=== PATIENT | female | born 1975 | race Two or more races ===

== ENCOUNTER 2024-09-01 12:05 | Day surgery (SDC) | payer MEDICAID, SELFPAY ==
[2024-08-31 13:36] VITALS: BMI 33.6
--- NOTE | 2024-08-31 16:26 | ESHP_ITS ---
RE: JENNIFER WESTON : 1975 DATE OF ADMISSION: 09/01/2024 DATE OF SURGERY: 09/01/2024 HISTORY OF PRESENT ILLNESS: This patient is a 49-year-old female who speaks good Amharic. She is here for screening colonoscopy. The patient denies any history of rectal bleeding or colon cancer in the family. She has never had a colonoscopy. She has a history of hypertension and her past surgery consisted of 3 sections and 3 hernia repairs. The patient is working in an office. PHYSICAL EXAMINATION: General: Slightly obese female who is 5 feet 2 inches tall and weighing 189 pounds with BMI of 33.48. Vital Signs: Revealed a temperature of 98.1, pulse of 69, BP 159/84. HEENT: Examination of the head normal. Eyes, ears, nose, and throat were normal. Neck: Normal. Chest: Revealed good breath sounds on both sides. Breasts: Not examined. Abdomen: Showed surgical scars from the lower abdomen due to sections. Rectal: Deferred pending colonoscope. IMPRESSION: 1. Screening colonoscope. 2. Anemia. 3. Essential hypertension. COURSE OF ACTION: I advised the patient to undergo colonoscopy. Procedures were explained to her in detail including potential complications like bleeding and perforation of the colon, which will require surgery. She is agreeable and wants to proceed with examination. DT: 15:28:01 TT: 16:25:00 Ref: [id number] - TID: [id number]
[2024-09-01] VITALS (12 sets, daily range): BP systolic 120–159; BP diastolic 68–97; PULSE 61–75; RESP 12–21; TEMP 36.4–36.6; O2SAT 93–100; BMI 33.8
[2024-09-01] MEDS: MIDAZOLAM INJ 1 MG/ML VIAL 2 ML (ASD USE ONLY) 2 MG IV (13:29)
[2024-09-01] MEDS: fentaNYL CIT INJ 50 mCg/ML AMP 2ML (ASD USE ONLY) IV (13:29)
--- NOTE | 2024-09-01 13:47 | SUR.PHASEII ---
PATIENT ARRIVED INTO RECOVERY WITH NO ACUTE DISTRESS NOTED, V/S STABLE, PATIENT PASSING FLATUS, REPORT RECEIVED FROM FAMILIA PANTOJA
== END 2024-09-01 14:35 | disposition home or self-care (01) ==
PROVIDERS: PCP Student in an Organized Health Care Education/Training Program; Referring Provider Surgery; Visit Provider Surgery
PROC: 0DBE8ZX Excision of Large Intestine, Via Natural or Artificial Opening Endoscopic, Diagnostic (ICD-10-PCS; CPT 45380; principal; 2024-09-01 13:00)
DX: Z12.11 Encounter for screening for malignant neoplasm of colon (principal); I10 Essential (primary) hypertension; D64.9 Anemia, unspecified
CPT/HCPCS: 45378; 81025; J2250; J3010